=== PATIENT | female | born 1980 | race Caucasian/White ===

== ENCOUNTER 2019-03-17 16:47 | Outpatient (CLI) | payer BC, SELFPAY ==
[2019-03-17 17:41] LABS: HCG Quant, Pregnancy 25039 mIU/mL (1-3)
--- NOTE | 2019-03-17 18:15 | DI.US_ITS ---
EXAM: US OB 1ST TRIMESTER CLINICAL HISTORY: rule out ectopic vs demise, O00.90. TECHNIQUE: Ultrasound performed using standard protocol. COMPARISON: OB ASSESSMENT - WEIGHT/LORI from 06/11/2017 FINDINGS: First-trimester ultrasound was performed. There is a visible yolk sac but no pole or cardiac ac tivity is identified. There may be a small subchorionic hemorrhage. Mean sac size consistent with ges tational age 9 weeks 0 days, the findings in conjunction with the lack of cardiac activity suggest fe luly demise. Early viable intrauterine gestation not excluded. Appropriate follow-up ultrasounds and/o r quantitative beta HCG determinations recommended. IMPRESSION:
--- NOTE | 2019-03-17 19:13 | DI.VRAD_ITS ---
Addendum created by Becca Anthony MD on 03/17/2019 7:39:45 PM EDT THIS REPORT CONTAINS FINDINGS THAT MAY BE CRITICAL TO PATIENT CARE. The findings were verbally communicated via telephone conference with TIFFANY BLAKE at 7:39 PM EDT on 03/17/2019. The findings were acknowledged and understood. Initial report created on 03/17/2019 7:13:43 PM EDT PROCEDURE INFORMATION: Exam: US First Trimester, Transabdominal Exam date and time: 03/17/2019 4:45 PM Clinical history: 38 years old, female; Pain; Other: Rule out ectopic vs demise; Gestational age or lmp: Lmp 01/04/19; TECHNIQUE: Imaging protocol: Real-time transabdominal obstetrical ultrasound of the maternal pelvis and a first trimester , less than 14 weeks 0 days, with image documentation. COMPARISON: US OB 11/06/2017 14:16 FINDINGS: GESTATION: Gestation: There is a yolk sac. There is no definite pole identified. Heart rate: There is no cardiac activity is identified. Placenta: Possible small subchorionic hemorrhage. Amniotic fluid: Amniotic and chorionic fluid are normal for gestational age. BIOMETRY: Estimated gestational age: Intrauterine gestational sac measures 3.7 cm corresponding to 9 weeks 0 days gestational age. MATERNAL: Uterus: Unremarkable. Cervix: Unremarkable. Right adnexa: 2.3 cm right ovarian cyst with peripheral vascularity. Left adnexa: Unremarkable. Intraperitoneal: No intraperitoneal free fluid. IMPRESSION: Intrauterine gestational sac in the sac. No definite pole or no cardiac activity. The findings may represent an early intrauterine verses an early intrauterine demise. Recommend correlating with beta-hCG and followup ultrasound for further evaluation. Dictated and Authenticated by: Becca Anthony MD. Ordering:VANESSA Valladares MD
== END 2019-03-17 17:07 ==
PROVIDERS: PCP Nurse Practitioner Family; Visit Provider Obstetrics & Gynecology
DX: O00.90 Unspecified ectopic pregnancy without intrauterine pregnancy (principal); O20.0 Threatened abortion
CPT/HCPCS: 36415; 86850; 86900; 86901; 76801; 84702

== ENCOUNTER 2019-03-22 12:44 | Day surgery (SDC) | payer BC, SELFPAY ==
[2019-03-22 13:10] VITALS: BP 113/63; PULSE 75; RESP 16; TEMP 36.5; O2SAT 100
--- NOTE | 2019-03-22 13:20 | W.PM.HP.N ---
Date of service: 03/22/19 Time of Service: 13:20 Assessment and Plan Assessment and plan (1) Missed : Status: Acute Assessment and plan: Patient has attempted to do doses of vaginal misoprostol without bleeding or significant cramping. She has opted for a surgical evacuation of uterine contents. I reviewed the risks of the procedure including the risk of damage to the uterus the risk of puncture of the uterus requiring a larger incision and exploratory laparotomy. Cells the risk of bleeding from surrounding vessels the uterus or puncture of the bladder. Lastly the risk of damage to the bowels the event of uterine perforation. Patient is aware of alternatives to D&C and wishes to proceed. She was administered doxycycline 200 mg orally prior to the procedure. (2) Rh negative state in antepartum period: Status: Acute Assessment and plan: The plan is to have her obtained RhoGam immediately post procedure. History of Present Illness History of Present Illness Chief Complaint: Missed at 9 weeks estimated gestational age Narrative: Patient is a 38-year-old G2, P1 female currently 9+ weeks estimated gestational age who was diagnosed with a missed on 03/17/2019. She recently had a dating ultrasound scheduled but there was no evidence of pole on the transvaginal ultrasound. Repeat imaging was performed and diagnostic imaging which confirmed a 9-week missed . Patient was counseled regarding treatment options and originally opted for expectant management. Type and screen showed her to be Rh- with antibody negative at the time of [facility]2019 she was counseled regarding continued expectant management, treatment with intravaginal misoprostol or D&C. She opted for the treatment but intravaginal misoprostol. She took 800 mcg per visit in her vagina that evening repeat dose the evening of the next day produced no significant bleeding or passage of tissue. She is had minimal spotting from her vagina and minimal uterine cramping despite the 2 doses of 800 mcg of misoprostol. Review of Systems Constitutional Constitutional: Reports as per HPI, Denies fever(s) and Reports other (Mild uterine cramping) Cardiovascular Cardiovascular: Reports system reviewed and no additional complaints, except as docu Respiratory Respiratory: Reports system reviewed and no additional complaints, except as docu Gastrointestinal Gastrointestinal: Reports abdominal pain (Mild cramping) Genitourinary Genitourinary: Reports abnormal vaginal bleeding (Small amount of spotting no significant clots or tissue) and Reports pelvic pain (Uterine cramping) Integumentary/Breasts Skin/Breast: Reports system reviewed and no additional complaints, except as docu Psychiatric Psychiatric: Reports as per HPI (Coping well with the SAB in the lack of success with the misoprostol) [facility] Medical History Bruit As infant, underwent screenings, transient. Resolved. Factor 5 Leiden mutation, heterozygous Missed (Acute) 03/20/2019: Estimated gestational age 9 weeks. No pole Surgical History (Updated 03/22/19 @ 13:29 by Nidhi Mendez MD) History of D&C (Acute) 03/22/2019. 9-week missed . [place] teeth extracted (Acute) Family History Mother Age: 72 Breast cancer Father Age: 74 Factor 5 Leiden mutation, heterozygous Sister Age: 39 Factor 5 Leiden mutation, heterozygous Maternal Aunt Factor 5 Leiden mutation, heterozygous paternal Sister Age: 42 No problems noted. Social History (Updated 03/22/19 @ 13:25 by Nidhi Mendez MD) Smoking/Tobacco Use Status: Never Alcohol Intake: former Drug use: Never Substance use type: does not use Household members: spouse, children and other Details: [facility] Number of Children: 1 Education Level: college current occupation: Teacher seventh-grade Do you feel safe at home: Yes Do you feel safe in your relationship?: Yes History History 2 Para 1 Hx # Term Pregnancies 1 Multiple births Hx # Pregnancies Ectopic pregnancies AB induced Hx Number of Living Children 2 AB spontaneous 1 Meds Home Medications and Allergies Home Medications Medication Instructions Recorded Confirmed Type PNV cmb#95-ferrous fumarate-FA 1 ea PO TID 11/06/16 03/22/19 History [Prenavite] misoprostol 100 mcg tablet 100 mcg VAGINAL ONCE #16 tab 03/21/19 03/22/19 Rx ranitidine HCl 150 mg PO DAILY PRN 03/22/19 03/22/19 History Allergies Allergy/AdvReac Type Severity Reaction Status Date / Time codeine AdvReac sobbing Unverified 03/22/19 13:07 depression Exam Const General: no acute distress Nutritional Appearance: average body habitus Orientation: alert, awake and oriented x3 Resp Effort & Inspection: normal respiratory effort Auscultation: clear to auscultation bilaterally Cardio Rate: regular rate Rhythm: regular rhythm General: deferred Skin General skin exam: no rashes or lesions noted Psych Appearance: grossly normal Mental Status: mental status grossly normal Results Last Vital Signs Temp 97.7 F 03/22/19 13:10 Pulse 75 03/22/19 13:10 Resp 16 03/22/19 13:10 BP 113/63 03/22/19 13:10 Pulse Ox 100 03/22/19 13:10
[2019-03-22] MEDS: Doxycycline Hyclate 100 MG CAP 200 MG PO (13:23)
[2019-03-22] MEDS: Lactated Ringers 1,000 ML 125 ML IV ×2 (13:24→14:57)
--- NOTE | 2019-03-22 14:30 | POC_PTH ---
PATIENT: Harper Goddard LOC: [facility] U#:[id number] AGE/SX: 38/F ROOM: RE03/22/[address]: Nidhi Mendez : 1980 BED: DIS: 03/22/2019 SPEC #: [id number] RECD: 03/22/19 17:12 STATUS: PREET REKishore #: [id number] BELINDA: 03/22/19 14:[address]: Nidhi Mendez DEPT: Surgical Specimen RECD BY: Michelle Esposito ENTERED: 03/22/19 17:13 SP TYPE: POC OTHR DR: Halima Long Tissues: 1 - INDUCED Procedures: GROSS AND MICRO LEVEL 3 Comments: [id number]
[2019-03-22] MEDS: Bupivacaine 0.25% Pres-Free 30 ML VIAL (14:46)
[2019-03-22] MEDS: Silver Nitrate Stick 1 EACH (14:49)
[2019-03-22 15:34] VITALS: BP 104/53; PULSE 58; RESP 18; TEMP 36.2; O2SAT 99
--- NOTE | 2019-03-22 15:40 | NUR.NOTE ---
Sharri Youngblood RN verified pt identity with this nurse before administration. Administered into left deltoid.Nursing Note:
--- NOTE | 2019-03-22 15:46 | W.PM.DSUDISC ---
Discharge Plan Disposition Patient Disposition: HOME Condition: Fair Discharge Details Reason For Visit: MISSED AB Attending Provider: Nidhi Mendez Primary Care Provider: Halima Long Home Meds and New Rx's Prescriptions: No Action misoprostol 100 mcg tablet 100 mcg vaginal ONCE Qty: 16 RF: 0 PNV cmb#95-ferrous fumarate-FA [] 1 EACH tablet 1 ea PO TID RF: 0 ranitidine HCl 150 mg Capsule 150 mg PO DAILY PRNRF: 0 Discharge Instructions Additional Instructions: ibuprofen for cramping. You can expect bleeding for a week. You havre an appointment with Dr Mendez 04/07/19 at 3:20 at [facility]. Stand Alone Forms: DSU Post Gynecology Surgery, DSU Post Suction D+C, Kevin Do (DSU) Activity:: Activity as Tolerated Diet:: As Tolerated Discharge Orders Discharge Orders: Discharge Order (Routine); Ordered 03/22/19 Ordered By: Nidhi Mendez DS: Diagnosis Discharge Diagnosis (1) Missed : Status: Acute (2) Rh negative state in antepartum period: Status: Acute (3) History of D&C: Status: Acute
[2019-03-22 16:18] VITALS: BP 108/52; PULSE 66; RESP 18; TEMP 36.6; O2SAT 100
--- NOTE | 2019-04-03 15:42 | W.PM.OP ---
Operative Note Operative Note DATE OF PROCEDURE: 04/03/19 PRE-OP DIAGNOSIS: Missed approximately 9 weeks estimated gestational age POST-OP DIAGNOSIS: same PROCEDURE: Cervical dilatation and suction evacuation of uterine contents SURGEON: Nidhi Mendez ANESTHESIA: MAC ESTIMATED BLOOD LOSS: 10 PATHOLOGY: other (Products of conception to pathology) COMPLICATIONS: None Patient was transported to: PACU Patient's condition: stable Indications: 38-year-old G2, P1 female currently 9+ weeks EGA diagnosed with a missed on 03/17/2019. Patient was initially managed expectantly. On 03/20/2019 she opted for the treatment with intravaginal misoprostol. She took a dose of 800 mcg vaginally 12 hours apart without any uterine bleeding or cramping. She requested a D&C. Findings: Uterus enlarged sounded to 10 cm. Moderate amount of products of conception returned. Procedure Description: Patient was placed in the dorsal supine position and and monitored anesthesia care was performed. She was then placed in the dorsal lithotomy position in yellowfin stirrups prepped and draped in the usual sterile fashion she voided prior to arriving in the OR. Oral doxycycline had been administered on arrival to same-day surgery. [place] speculum was placed into the vagina and the anterior lip of the cervix was infiltrated with quarter percent Marcaine without epinephrine the anterior lip of the cervix was then grasped with a single-tooth tenaculum. Paracervical block was performed with quarter percent Marcaine injected at the 4 and 8:00 cervical interface respectively. Uterus was then sounded and sequentially dilated to a maximum of 19 Up. A 9 mm suction cannula was then inserted into the uterine cavity attached to 60 mmHg suction in all 4 quadrants of the uterine cavity was sequentially suction curetted. A banjo curette was then used to perform a manual curetting no further tissue was obtained. Final pass of the suction curette was performed with no tissue returned. Instruments were removed from the patient's vagina the tenaculum site was noted to be hemostatic and the uterus firm with minimal cervical bleeding. All sponge lap and needle counts were correct x2 patient was transferred to recovery area in stable condition
== END 2019-03-22 16:20 | disposition home or self-care (01) ==
PROVIDERS: PCP Nurse Practitioner Family; Visit Provider Obstetrics & Gynecology Gynecology
PROC: (CPT 59841; principal; 2019-03-22 14:00)
DX: O02.1 Missed abortion (principal); Z29.13 Encounter for prophylactic Rho(D) immune globulin
CPT/HCPCS: 59820; 86850; 90384; 99221; 88304; 99211; J1100; J1200; J1885; J2250; J2405; J3010

== ENCOUNTER 2019-07-19 17:45 | Outpatient (REF) | payer BC, SELFPAY ==
--- NOTE | 2019-07-19 17:45 | PAPFT_PTH ---
PATIENT: Harper Goddard LOC: [facility]#:[id number] AGE/SX: 38/F ROOM: RE07/19/[address]: Zo Montes : 1980 BED: DIS: 07/19/2019 SPEC #: [id number] RECD: 07/20/19 11:40 STATUS: PREET REQ #: [id number] BELINDA: 07/19/19 17:[address]: Zo Montes DEPT: [facility] Cytology RECD BY: Michelle Esposito ENTERED: 07/20/19 11:40 SP TYPE: PAPFT OTHR DR: Halima Long Tissues: 1 - CX/ENDOCX FOR PAP SMEARS Procedures: PAP THIN PREP/UVM Screening HPV DNA PROBE Comments: [id number] (CHLAMYDIA/GC)
[2019-07-19 22:44] LABS: Anion Gap 8.3 mmol/L (3-11); BUN 13 mg/dL (7-18); CO2 27.7 mmol/L (21.0-32.0); CREATININE 0.83 mg/dL (0.55-1.02); Calcium 8.9 mg/dL (8.5-10.1); Chloride 105 mmol/L (98-107); Glucose 113 mg/dL (74-106); Potassium 3.9 mmol/L (3.5-5.1); Sodium 141 mmol/L (136-145); TSH (W/Ref FT4) 2.21 uIU/mL (0.36-3.74)
[2019-07-21 14:46] LABS: Chlamydia Result Negative (Negative); GC Result Negative (Negative)
== END 2019-07-19 18:05 ==
LOC: NCHCN 17:45
PROVIDERS: PCP Nurse Practitioner Family; Visit Provider Nurse Practitioner Family
DX: Z00.00 Encounter for general adult medical examination without abnormal findings (principal); Z13.29 Encounter for screening for other suspected endocrine disorder; Z13.228 Encounter for screening for other metabolic disorders; Z11.3 Encounter for screening for infections with a predominantly sexual mode of transmission; Z12.4 Encounter for screening for malignant neoplasm of cervix; Z01.419 Encounter for gynecological examination (general) (routine) without abnormal findings
CPT/HCPCS: 80048; 87491; 87591; 88142; 84443; 87624

== ENCOUNTER 2020-02-14 04:57 | Outpatient (CLI) | payer BC, SELFPAY ==
[2020-02-14 20:24] LABS: *AMPHETAMINES SCREEN URINE Negative (Negative); *BARBITURATES SCREEN URINE Negative (Negative); *BENZODIAZEPINES SCREEN URINE Negative (Negative); Cannabinoids THC Negative (Negative); Cocaine Screen,Urine Negative (Negative); METHADONE URINE SCREEN Negative (Negative); OPIATES URINE SCREEN Negative (Negative)
[2020-02-14 20:40] LABS: Tricyclic Antidepressants Negative (Negative)
[2020-02-21 11:08] LABS: Buprenorphine Negative; Norbuprenorphine Negative
== END 2020-02-14 05:17 ==
PROVIDERS: PCP Nurse Practitioner Family; Visit Provider Advanced Practice Midwife
DX: Z34.90 Encounter for supervision of normal pregnancy, unspecified, unspecified trimester (principal)
CPT/HCPCS: 80307; 87086

== ENCOUNTER 2020-02-28 03:11 | Outpatient (CLI) | payer BC, SELFPAY ==
[2020-02-28 09:58] LABS: Kit/Specimen SENT
[2020-02-28 10:16] LABS: Abs Immature Grans 0.02 10^3/uL (0.0-0.06); Absolute Basophil Count 0.01 10^3/uL (0.0-0.2); Absolute Eosinophil Count 0.04 10^3/uL (0.0-0.7); Absolute Monocyte Count 0.23 10^3/uL (0.1-0.8); Absolute Neutrophil Count 3.92 10^3/uL (1.2-6.7); Basophils % 0.2; Eosinophils % 0.8; HCT 38.3 % (36.0-46.0); HGB 13.2 g/dL (11.2-15.7); Immature Grans % 0.4; Lymphocytes % 14.2; MCHC 34.5 % (32.0-36.0); MCV 89.9 fL (80-95); MPV 10.2 fL (8.0-11.0); Monocytes % 4.7; Neutrophils % 79.7; Nucleated RBC 0 %; Platelet Count 151 10^3/uL (130-400); RBC 4.26 10^6/uL (3.93-5.22); RDW 12.9 % (11.7-14.6); RDW-SD 42.1 fL; WBC 4.92 10^3/uL (4.4-10.8)
[2020-02-28 10:24] LABS: Glucose,1 Hr (Glucola) 94 mg/dL (80-140)
[2020-02-29 09:11] LABS: Hepatitis B Surface Ag Negative (Negative)
[2020-02-29 09:50] LABS: Hepatitis C Ab w Rflx HCV PCR Negative (Negative)
[2020-02-29 10:12] LABS: HIV-1/2 Ag & Ab Screen Negative (Negative)
[2020-02-29 10:44] LABS: Varicella IgG Antibody Positive (See Note)
[2020-02-29 10:47] LABS: Rubella IgG Ab (UVM) Positive (See Note)
[2020-02-29 13:47] LABS: Syphilis Total Ab w/Reflex Nonreactive (Nonreactive)
[2020-03-03 11:04] LABS: Specimen WB Whole Blood
[2020-03-06 02:56] LABS: Result Summary NEGATIVE; Specimen WB Whole Blood
== END 2020-02-28 03:31 ==
PROVIDERS: PCP Nurse Practitioner Family; Visit Provider Advanced Practice Midwife
DX: O09.521 Supervision of elderly multigravida, first trimester (principal); Z11.59 Encounter for screening for other viral diseases; Z11.4 Encounter for screening for human immunodeficiency virus [HIV]; Z01.84 Encounter for antibody response examination; Z36.89 Encounter for other specified antenatal screening
CPT/HCPCS: 36415; 81329; 82950; 86787; 86803; 86850; 86900; 86901; 87340; 87389; 81220; 84443; 85025; 86762; 86780

== ENCOUNTER 2020-04-24 04:40 | Outpatient (CLI) | payer BC, SELFPAY ==
[2020-04-26 12:40] LABS: AFP 38.7 ng/mL; Cigarette smoking status non-Smoker; GA used in risk estimate Dates estimate; IVF Pregnancy No; Initial or repeat testing Initial testing; Insulin dependent diabetes No; Maternal Weight 255 lbs; Number of Fetuses 1; Physician Phone Number 802-748-7300; Prev Pregnancy w/NTD No; RECOMMENDED FOLLOW UP None.; Results Summary Normal risk
== END 2020-04-24 05:00 ==
PROVIDERS: PCP Nurse Practitioner Family; Visit Provider Advanced Practice Midwife
DX: Z36.89 Encounter for other specified antenatal screening (principal); Z3A.20 20 weeks gestation of pregnancy
CPT/HCPCS: 36415; 82105

== ENCOUNTER 2020-06-20 02:39 | Outpatient (CLI) | payer BC, SELFPAY ==
[2020-06-20 10:13] LABS: Glucose,1 Hr (Glucola) 106 mg/dL (80-140)
[2020-06-20 10:21] LABS: HCT 37.1 % (36.0-46.0); HGB 12.5 g/dL (11.2-15.7); MCH 30.9 pg (27.0-33.0); MCHC 33.7 % (32.0-36.0); MCV 91.8 fL (80-95); MPV 10.2 fL (8.0-11.0); Platelet Count 138 10^3/uL (130-400); RBC 4.04 10^6/uL (3.93-5.22); RDW-SD 47.1 fL; WBC 6.02 10^3/uL (4.4-10.8)
== END 2020-06-20 02:59 ==
PROVIDERS: PCP Nurse Practitioner Family; Visit Provider Advanced Practice Midwife
DX: Z34.93 Encounter for supervision of normal pregnancy, unspecified, third trimester (principal); Z36.89 Encounter for other specified antenatal screening; Z3A.28 28 weeks gestation of pregnancy
CPT/HCPCS: 36415; 82950; 85027; 86850; 90384

== ENCOUNTER 2020-07-22 01:08 | Outpatient (CLI) | payer BC, SELFPAY ==
--- NOTE | 2020-07-22 09:00 | DI.US_ITS ---
EXAM: US OB LORI WEIGHT CLINICAL HISTORY: 2 vessel cord,Z34.90. TECHNIQUE: Transabdominal obstetrical ultrasound performed. COMPARISON: No previous for comparison. FINDINGS: Transabdominal obstetrical ultrasound performed. FINDINGS: Number of fetuses: One. position: Cephalic. Placental location: Anterior. No evidence of previa. BIOMETRIC DATA: BPD: 87 mm = 35 weeks HC: 317 mm = 35 weeks 4 days AC: 325 mm = 36 weeks 3 days FL: 7 mm = 36 weeks EFW: 2829 grms Composite Age: 35 weeks 5 days EDC: 08/21/2020 Heart Rate: 140BPM Amniotic fluid index: 19.4 cm. Visually, amount of fluid is within normal limits. IMPRESSION: 1. Single live intrauterine gestation as above. Estimated gestational age is 35 weeks 5 days. 2. Estimated weight is 2829gms. 3. Amniotic fluid index is 19.4 cm. Visually within normal limits. DATA REPOSITORY:
== END 2020-07-22 01:09 | disposition home or self-care (01) ==
PROVIDERS: PCP Nurse Practitioner Family; Visit Provider Advanced Practice Midwife
DX: Z34.93 Encounter for supervision of normal pregnancy, unspecified, third trimester (principal)
CPT/HCPCS: 76816

== ENCOUNTER 2020-08-06 02:26 | Outpatient (CLI) | payer BC, SELFPAY ==
[2020-08-06 09:59] LABS: HCT 37.2 % (36.0-46.0); HGB 12.8 g/dL (11.2-15.7); MCH 31.1 pg (27.0-33.0); MCHC 34.4 % (32.0-36.0); MCV 90.3 fL (80-95); MPV 9.9 fL (8.0-11.0); Platelet Count 140 10^3/uL (130-400); RBC 4.12 10^6/uL (3.93-5.22); RDW 14.1 % (11.7-14.6); RDW-SD 46.5 fL
[2020-08-06 10:05] LABS: Glucose,1 Hr (Glucola) 123 mg/dL (80-140)
== END 2020-08-06 02:27 | disposition home or self-care (01) ==
LOC: LBO 02:26
PROVIDERS: Advanced Practice Midwife; PCP Nurse Practitioner Family; Visit Provider Advanced Practice Midwife
DX: Z34.93 Encounter for supervision of normal pregnancy, unspecified, third trimester (principal)
CPT/HCPCS: 36415; 82950; 85027

== ENCOUNTER 2020-08-16 14:02 | Outpatient (REF) | payer BC, SELFPAY ==
[2020-08-16 14:25] LABS: *AMPHETAMINES SCREEN URINE Negative (Negative); *BARBITURATES SCREEN URINE Negative (Negative); *BENZODIAZEPINES SCREEN URINE Negative (Negative); Cannabinoids THC Negative (Negative); Cocaine Screen,Urine Negative (Negative); METHADONE URINE SCREEN Negative (Negative); OPIATES URINE SCREEN Negative (Negative)
[2020-08-16 14:46] LABS: Tricyclic Antidepressants Negative (Negative)
[2020-08-22 06:46] LABS: Buprenorphine Negative ng/mL (Cutoff: 5.0); Norbuprenorphine Negative ng/mL (Cutoff: 2.5)
== END 2020-08-16 14:03 | disposition home or self-care (01) ==
LOC: LBN 14:02
PROVIDERS: PCP Nurse Practitioner Family; Visit Provider Advanced Practice Midwife
DX: Z34.93 Encounter for supervision of normal pregnancy, unspecified, third trimester (principal); Z36.85 Encounter for antenatal screening for Streptococcus B; Z3A.36 36 weeks gestation of pregnancy
CPT/HCPCS: 80307; 87081

== ENCOUNTER 2020-08-19 01:27 | Outpatient (CLI) | payer BC, SELFPAY ==
--- NOTE | 2020-08-19 07:00 | DI.US_ITS ---
EXAM: US OB LORI WEIGHT CLINICAL HISTORY: LARGE FOR GESTATIONAL AGE,Z34.90. TECHNIQUE: Transabdominal obstetrical ultrasound performed. COMPARISON: US US OB LORI WEIGHT from 07/22/2020 US US OB LORI WEIGHT from 07/22/2020 FINDINGS:: Number of fetuses: One. position: Vertex. Placental location: Anterior. No evidence of previa. BIOMETRIC DATA: BPD: 94 mm = 38+ 1 weeks HC: 355 mm = 41+4 weeks AC: 357mm = 39+ 4 weeks FL: 78 mm = 39+ 6 weeks EFW: 3860 Gms = 99% Composite Age: 39+ 6 weeks EDC: 20 August 2020 Predicted gestational age 36+ 5 weeks Heart Rate: 143BPM Amniotic fluid index: 19.9 cm. Amount of fluid is at the upper normal limit. This is not significan tly changed. A 2 vessel umbilical cord is noted. IMPRESSION: size is again noted to be measuring 2 weeks greater than predicted. Appropriate interval growth. Stable borderline polyhydramnios. A two vessel cord is noted. DATA REPOSITORY:
== END 2020-08-19 01:47 ==
PROVIDERS: PCP Nurse Practitioner Family; Visit Provider Advanced Practice Midwife
DX: Z34.93 Encounter for supervision of normal pregnancy, unspecified, third trimester (principal)
CPT/HCPCS: 76816

== ENCOUNTER 2020-09-13 04:11 | Outpatient (CLI) | payer BC, SELFPAY ==
--- NOTE | 2020-09-13 07:15 | DI.US_ITS ---
EXAM: US OB LORI WEIGHT CLINICAL HISTORY: size greater than dates,o36.63X0 TECHNIQUE: Ultrasound performed using standard protocol. COMPARISON: US US OB LORI WEIGHT from 08/19/2020 FINDINGS: Ob ultrasound was performed utilizing limited 3rd trimester protocol. Placenta is anterior with no p lacenta previa. There is a single fetus in cephalic presentation. There is visually a normal to sli ghtly increased quantity of amniotic fluid and the LORI is 20. biometry is consistent with term gestation. Estimated weight is 4435 grams which is at t he 95th percentile for predicted gestational age. heart rate is 147 BPM IMPRESSION: DATA REPOSITORY:
== END 2020-09-13 04:31 ==
PROVIDERS: PCP Nurse Practitioner Family; Visit Provider Advanced Practice Midwife
DX: O36.63X0 Maternal care for excessive fetal growth, third trimester, not applicable or unspecified (principal)
CPT/HCPCS: 76816

== ENCOUNTER 2020-09-13 14:40 | Inpatient (IN) | payer BC, SELFPAY ==
--- NOTE | 2020-09-13 17:05 | HPE_ITS ---
Date of service: 09/13/20 Time of Service: 17:06 Assessment and Plan Assessment and plan (1) Encounter for induction of labor: Status: Acute Assessment and plan: A: 39 yo , IOL via cervical ripening for LGA postdates Increased risk for shoulder dystocia and PPH, discussed with staff Category 1 tracing, holbrook score of 5 Nml glucose screening x2 this Heterozygous Factor 5 Leiden, no need for anti-coag during per [facility], P: Admit to BC, draw CBC and T&S, COVID swab for inhouse processing Misoprostel IOL protocol Dr. Mendez consulting, inhouse for delivery (2) Post-term , 40-42 weeks of gestation: Status: Acute OB-HPI Labor/Delivery History of Present Illness Reason for Visit: POST DATES,MACROSOMIA Chief Complaint: Scheduled Induction of Labor Indication for Induction: Ma crosomia and Post Date. LEIGHTON Calculator Estimated Delivery Date Method Current WG Current Estimate 09/11/20 LMP (Certain) 40w 2d Other Estimates 09/11/20 Ultrasound #1 40w 2d History of Present Expected Delivery Route/Plan - CNM FOB/ - Tata Lewis (2nd child w/pt, has another daughter) BB yes to circ Prefers no document management consultant intervention - anxiety producing in the past. GBS negative Specific Issues/Plan 1. BMI 34, early glucola 94 2. AMA: desires [place] and level 2 sono w/MFM consult @ [facility] 2a. [place] result is low prob x3, male fetus 2b. [facility] US shows 2-vessel cord - growth US at 32 weeks and 36 weeks 3. Desires CF and SMA screening, drawn 02/27; desires single marker AFP, will draw @ 16 wks 3a. SMA and CF carrier screen negative 3b. AFP neg 4. Heterozygous Factor 5 Leiden, genetic w/up & counseling w/previous 4a. [facility] recommends Lovenox only if pt has a C/S delivery or long period of immobility 5. Previous macrosomia w/mild shoulder dystocia 6. Low dose ASA for elevated BMI and AMA 7. Rh neg; RhoGam @ 28 wks: done 06/20/20 8. [facility] sono showed 2 vessel cord, 32 wk and 36 wk interval growth scans recommended, anterior placenta 8a. 32 wk scan: 07/22/20 LORI normal EFW >99% (off charts per radiology) 8b. 36 wk scan: 08/19/20 - EFW 3860 gms in 99th percentile, LORI 19.9 9. Depression beginning at 22 weeks or so. Will monitor, consider SSRI by 32-34 wks if continues. 9a. Decided against medications. Taking Vitamin D/Magnesium/fish oil, feels improvement Review of Systems All systems reviewed & are unremarkable except as noted in HPI and below Constitutional Constitutional: Reports system reviewed and no additional complaints, except as documented Cardiovascular Cardiovascular: Reports system reviewed and no additional complaints, except as documented Respiratory Respiratory: Reports as per HPI Gastrointestinal Gastrointestinal: Reports system reviewed and no additional complaints, except as documented Genitourinary Genitourinary: Reports system reviewed and no additional complaints, except as documented Musculoskeletal Musculoskeletal: Reports system reviewed and no additional complaints, except as documented Integumentary/Breasts Skin/Breast: Reports system reviewed and no additional complaints, except as documented Neurologic Neurologic: Reports system reviewed and no additional complaints, except as documented Psychiatric Psychiatric: Reports system reviewed and no additional complaints, except as documented Endocrine Endocrine: Reports system reviewed and no additional complaints, except as documented [facility] Medical History (Updated 09/13/20 @ 17:12 by Barby Valdivia) 16 weeks gestation of Bruit As , underwent screenings, transient. Resolved. Elderly multigravida in second trimester Factor 5 Leiden mutation, heterozygous Missed 03/20/2019: Estimated gestational age 9 weeks. No pole Surgical History (Updated 03/22/19 @ 13:29 by Nidhi Mendez MD) History of D&C 03/22/2019. 9-week missed . [place] teeth extracted Family History Mother Age: 73 Breast cancer Father Age: 76 Factor 5 Leiden mutation, heterozygous Sister Age: 41 Factor 5 Leiden mutation, heterozygous Maternal Aunt Factor 5 Leiden mutation, heterozygous paternal Sister Age: 43 No problems noted. Social History (Updated 03/22/19 @ 13:25 by Nidhi Mendez MD) Smoking/Tobacco Use Status: Never Smoking risk assessment performed?: Yes Alcohol Intake: former Drug use: Never Substance use type: does not use Household members: spouse, children and other Details: [place] Number of Children: 1 Education Level: college current occupation: Teacher seventh-grade Do you feel safe at home: Yes Do you feel safe in your relationship?: Yes History History 3 Para 1 Hx # Term Pregnancies 1 Multiple births 0 Hx # Pregnancies 0 Ectopic pregnancies 0 AB induced 0 Hx Number of Living Children 1 AB spontaneous 1 Past Pregnancies Del. Date GA/Weeks # Outcome Route Wgt Sex Labor Lgth Anesthes ia Location Prov Complic 06/15/17 41 No Successful vaginal 9 lb Female 8-9 hrs N [facility] with Dr. Mendez Delivery Date: 06/15/17 IOL for postdates, rodas bulb and pitocin, GBS antibiotics, used nitrous only for pain. Mild shoulder dystocia. Barby Valdivia Home Medications and Allergies Allergies Allergy/AdvReac Type Severity Reaction Status Date / Time codeine AdvReac sobbing Unverified 09/12/20 15:26 depression Home Medications Medication Instructions Recorded Confirmed Type vit no.95-ferrous 1 tab PO DAILY 01/31/20 05/22/20 History fumarate 28 mg-folic acid 800 mcg tablet aspirin 81 mg tablet,delayed 121.5 mg PO DAILY #90 tab 02/14/20 05/22/20 Rx release cholecalciferol (vitamin D3) 10 10 mcg PO DAILY 07/05/20 History mcg (400 unit) capsule fish oil 2 tab PO DAILY 07/05/20 History lactobacillus combination no.8 3 3,000 mmu cells PO DAILY 07/05/20 History billion cell capsule magnesium carb,citrate,oxide mg PO 08/23/20 History Exam Physical Exam Vital Signs Reviewed: Yes Constitutional Constitutional: no acute distress and obese Detailed Labor and Delivery Exam Dilation: 2 Effacement (%): 60 station: -4 Position: ROP Cervix position: posterior Consistency: soft HOLBROOK Score(Cervical Ripeness Score): 5 Amniotic Membrane Status: Intact Contraction Frequency(min): none Fetus A Heart Rate Baseline: 130 Monitor Accelerations: 15 X 15 Monitor Decelerations: None Presentation: Cephalic Categories: Category I Est. Weight: 9 lb 14.733 oz Est. Weight: 4500 gms Assessment Note: Ultrasound for EFW/LORI done today: EFW in the 95th pe rcentile, LORI 20.0 HEENT Exam HEENT Exam: Normal Neck Exam Neck Exam: Normal Chest/Brest/Axilla Exam Chest Exam: Normal Breast Exam Breast Exam: Normal Respiratory Exam Respiratory Exam: Normal Cardiovascular Exam Cardiovascular Exam: Normal Abdominal Exam Abdominal Exam: Normal (Gravid) Rectal Exam Rectal Exam: Not Done Exam Exam: Normal Extremities Exam Extremities Exam: Normal Back/Spine/Pelvis Exam Back Exam: Normal Pelvis Adequate: Yes (proven to 4100 gms) Skin Exam Skin Exam: Normal Neurological Exam Neurological Exam: Normal Psychiatric Exam Psychiatric Exam: Normal Results Results Group Beta Strep: Negative Blood Type: A- Rubella Status: Immune Varicella Immunity: Immune Risk Assessment Risk for Shoulder Dystocia Historical/Initial OB: POSITIVE FOR: Pre- BMI>30 and Previous Shoulder D ystocia; NEGATIVE FOR: Pelvic Abnormality or Previous Macrosomia 40 Weeks: POSTIVE FOR: EFW> 4500 gms and Post Dates; NEGATIVE FOR: Maternal Weight Gain >40lb Increased Risk?: Yes Counseling: reviewed shoulder dystocia risks, maneuvers, that likely should not be in tub but labor in tub is not prohibited.KETURAH Delivery Plan @ 36wks: expect NVD, repeat US for growth at 37-38 weeks Delivery Plan @ 40 wks: IOL @ 40+3 Risk for Pre-Eclampsia Daily Dose ASA Indicated: Yes Date Initiated/Initials: will start 121 mg daily at 12 wks, jk Yes, if one or more: NEGATIVE FOR: Hx Pre-E/Gest HTN, Chronic HTN, Multiple Gestation, Pre-gestational DM, Renal Disease, Systemic Lupus or APA Syndrome Yes, if 2 or more: POSITIVE FOR: Age>= 35 yrs and BMI>30; NEGATIVE FOR: Nulliparity, >10yr btwn pregnancies, ethinicty, Mother/Sister w/ Pre-E or Previous IUGR Risk for Post- Hemorrhage Initial: NEGATIVE FOR: Multiple Gestation, Previous PPH, Known Clotting Deficiency, Grand Multiparity or Anticoagulation At Risk?: Yes Interventions: LGA baby Counseled re: Active Management: Yes Date/Initials: 08/16/20 discussed PPH and management, active management 3rd stage disc.KETURAH Risks Reviewed Risks Reviewed Upon Admission: Yes
[2020-09-13] MEDS: miSOPROStol 50 MCG TAB PO ×2 (17:11→21:08)
[2020-09-13 17:13] VITALS: BP 118/72; PULSE 72; RESP 16; TEMP 36.8
[2020-09-13 17:17] LABS: Source Nasal/Nares
[2020-09-13 17:23] LABS: HCT 37.4 % (36.0-46.0); HGB 12.8 g/dL (11.2-15.7); MCHC 34.2 % (32.0-36.0); MCV 90.6 fL (80-95); MPV 10.5 fL (8.0-11.0); Platelet Count 148 10^3/uL (130-400); RBC 4.13 10^6/uL (3.93-5.22); RDW 14.1 % (11.7-14.6); RDW-SD 46.3 fL
[2020-09-13 18:23] LABS: COVID-19 PCR Negative (Negative)
[2020-09-13 20:36] VITALS: BP 112/66; PULSE 77; RESP 18; TEMP 36.6; O2SAT 97
[2020-09-13 22:32] VITALS: BP 116/74; PULSE 74
[2020-09-13 22:33] VITALS: BP 116/74; PULSE 75; RESP 16; TEMP 36.7; O2SAT 97
[2020-09-14] VITALS (27 sets, daily range): BP systolic 108–144; BP diastolic 57–78; PULSE 61–90; RESP 16–18; TEMP 36.5–37.3; O2SAT 98
[2020-09-14] MEDS: miSOPROStol 50 MCG TAB PO (06:28)
--- NOTE | 2020-09-14 06:36 | W.PM.OBNL1 ---
Date of service: 09/14/20 Time of Service: 06:36 Informed Consent Informed Consent: Induction of Labor (IOL via cervical ripening reviewed with pt upon admission yesterday, indications for and risks of IOL and maneuvers for possible shoulder dystocia discussed with pt. Risks to baby and self should shoulder dystocia occur reviewed, pt consents to IOL and desires vaginal delivery.) and Risk,Benefits,Alternatives Discussed Contractions Monitor Mode: External Contraction Frequency(min): irregular, q 3-7 minutes Contraction Duration(sec): 50-70 seconds Intensity: Mild Fetus A Monitor: External (US) Heart Rate Baseline: 130 Presentation: Cephalic Variability: Moderate (6-25 BPM) Categories: Category I Accelerations: 15 X 15 Decelerations: Early Amniotic Membrane Status: Intact Assessment and Plan Assessment and plan (1) Encounter for induction of labor: Status: Acute Assessment and plan: A: IOL in progress, latent phase labor. category 1 tracing Multip, prev delivery of 4100 gm baby: mild SD quickly resolved w/no morbidity GBS negative, EFW 4500 gm COVID negative P: Continue misoprostel protocol w/continued pt informed choice Comfort measures as pt requests Anticipate with SD prep's in place Dr. Mendez consulting (2) Post-term , 40-42 weeks of gestation: Status: Acute Objective Temp Pulse Resp BP Pulse Ox 98.0 F 75 16 109/69 98 09/14/20 04:32 09/14/20 04:33 09/14/20 04:32 09/14/20 04:33 09/14/20 04:32 Laboratory Results WBC 7.50 10^3/uL (4.4-10.8) 09/13/20 17:05 RBC 4.13 10^6/uL (3.93-5.22) 09/13/20 17:05 Hgb 12.8 g/dL (11.2-15.7) 09/13/20 17:05 Hct 37.4 % (36.0-46.0) 09/13/20 17:05 MCV 90.6 fL (80-95) 09/13/20 17:05 MCH 31.0 pg (27.0-33.0) 09/13/20 17:05 MCHC 34.2 % (32.0-36.0) 09/13/20 17:05 RDW 14.1 % (11.7-14.6) 09/13/20 17:05 Plt Count 148 10^3/uL (130-400) 09/13/20 17:05 MPV 10.5 fL (8.0-11.0) 09/13/20 17:05 COVID-19 Source Nasal/nares 09/13/20 17:09 SARS-CoV-2 (PCR) Negative (Negative) 09/13/20 17:09 Patient ABO/Rh A Negative 09/13/20 17:05 Antibody Screen Negative 09/13/20 17:05 Vital Signs Reviewed: Yes Objective Narrative Objective Narrative: Pt received 2 doses of 50 mcg misoprostel PO yesterday afternoon/evening Was able to sleep fairly well without medication but awoke to somewhat stonger contrx early this morning Category 1 tracing, normotensive, afebrile, CBC nml, COVID neg, Rh neg (received RhoGam @ 28 wks) Coping well with discomforts, present for support HD #2 Subjective Interval history since last seen: Slept until 0400, has been restless since then, contractions seem stronger, 5/10 on pain scale and feeling like very strong menstrual cramps which felt better after walking around. Procedure Procedures: Cervical Ripening Cervical Ripening: Misoprostol
[2020-09-14] MEDS: Normal Saline Flush 10 ML SYR IVP ×2 (10:03→17:42)
[2020-09-14] MEDS: Normal Saline Flush 10 ML SYR (11:03)
--- NOTE | 2020-09-14 11:39 | PGE_ITS ---
Date of service: 09/14/20 Time of Service: 11:39 Informed Consent Informed Consent: Other (Consent discussion for AROM, continued plan for vaginal delivery) Pelvic Exam Dilation: 4 Effacement (%): 90 station: -3 Position: ROT Cervix Position: mid Consistency: soft Vaginal Exam Presentation: Cephalic Contractions Contraction Frequency(min): every 4-6 minutes Intensity: Mild/Moderate Fetus A Monitor: External (US) Heart Rate Baseline: 135 Presentation: Cephalic Variability: Moderate (6-25 BPM) Categories: Category I Accelerations: 15 X 15 Decelerations: None Amniotic Membrane Status: Ruptured Rupture Method: Artifical Amniotic Fluid: Clear Date of Membrane Rupture: 09/14/20 Time of Membrane Rupture: 11:35 Assessment and Plan Assessment and plan (1) Two vessel umbilical cord in faye , antepartum: Status: Acute (2) Post-term , 40-42 weeks of gestation: Status: Acute (3) Encounter for induction of labor: Status: Acute Assessment and plan: A: Multip, IOL via cervical ripening, latent phase Category 1 tracing P: Onset of active labor after AROM Anticipate w/SD prep in place Dr. Mendez updated on progress Objective Vital Signs Reviewed: Yes Objective Narrative Objective Narrative: Afebrile, normotensive Bedside sono done to locate back which is on pt's right side IV site infiltrated in left forearm and has been restarted in right arm Pt ate breakfast, showered, is coping well with contractions Amniotomy introduced as method to increase contraction intensity and bring on a ctive labor, pt consents AROM performed without difficulty, mod/lg amt clear and blood tinged fluid Category 1 tracing during and after procedure Subjective Interval history since last seen: Has ambulated, showered, tolerating PO intake well, contractions feel more consistent Results Hemoglobin/Hematocrit: Hgb 12.8 g/dL (11.2-15.7) 09/13/20 17:05 Hct 37.4 % (36.0-46.0) 09/13/20 17:05
--- NOTE | 2020-09-14 14:41 | W.PM.OBNL1 ---
Date of service: 09/14/20 Time of Service: 14:41 Pelvic Exam Dilation: 5.5 Effacement (%): 90 station: -2 Position: ROP Cervix Position: mid Consistency: soft Vaginal Exam Presentation: Cephalic Contractions Monitor Mode: External Contraction Frequency(min): irregular, q 5-7 minutes Intensity: Moderate Fetus A Monitor: External (US) Heart Rate Baseline: 135 Variability: Moderate (6-25 BPM) Categories: Category I Accelerations: 15 X 15 Decelerations: Early Amniotic Membrane Status: Ruptured Assessment and Plan Assessment and plan (1) Encounter for induction of labor: Status: Acute Assessment and plan: A: Multip, active labor after cervical ripening and AROM Category 1 tracing P: Comfort measures as requested Monitor for labor progression Consider pitocin augmentation if indicated Dr. Mendez updated on pt status Objective Vital Signs Reviewed: Yes Objective Narrative Objective Narrative: AROM x3 hrs, contraction intensity has increased Pt coping well with discomforts, ambulating, resting in bed, now requests hydrotherapy VSS Category 1 tracing with earlies noted Cxv exam progressed to 5-6/90%, vtx -2 ROP with ant font palpable at 1 or 2 o'clock Contractions per toco remain irregular Pt entered tub @ 1445, water temp 100F Subjective Interval history since last seen: Breathing through contractions, increasing pelvic pressure and hip pain. desires to soak in tub.
--- NOTE | 2020-09-14 16:55 | W.PM.OBNL1 ---
Date of service: 09/14/20 Time of Service: 16:55 Informed Consent Informed Consent: Other (Consent discussion for AROM, continued plan for vaginal delivery) Pelvic Exam Dilation: 8 Effacement (%): 100 station: -2 Position: ROT Cervix Position: anterior Consistency: soft Contractions Monitor Mode: Palpation Contraction Frequency(min): every 2-4 minutes Intensity: Strong Fetus A Monitor: Doppler Heart Rate Baseline: 125 Presentation: Vertex FHR Rhythm: Regular Accelerations: Present Decelerations: None Amniotic Membrane Status: Ruptured Assessment and Plan Assessment and plan (1) Encounter for induction of labor: Status: Acute Assessment and plan: A: Active labor, approaching transition IV access verified P: Anticipate Will hold 2nd stage huddle when complete Dr. Mendez aware, planning to attend delivery w/CNM Nsng supervisor agency appointments on BC unit Objective Vital Signs Reviewed: Yes Objective Narrative Objective Narrative: Intermittent auscultation while in tub and while on mat Active labor progressing well Subjective Interval history since last seen: Pt reports increasing rectal pressure, nausea, contractions are intensifying. Got out of the tub, on H&K on mat using CUB
[2020-09-14] MEDS: Lactated Ringers 1,000 ML 125 ML IV (17:43)
[2020-09-14] MEDS: Oxytocin/Normal Saline 30 UNIT/500 ML BAG 95 UNITS IV (17:50)
[2020-09-14] MEDS: Oxytocin 10 UNITS/ML VIAL IM (17:55)
[2020-09-14] MEDS: Lidocaine 1% Multi-Dose 20 ML VIAL IJ (18:00)
--- NOTE | 2020-09-14 18:30 | W.OBDELIVERY ---
Date of service: 09/14/20 Time of Service: 18:30 OB Labor/ Delivery Information Baby A Delivery Delivery Method: Spontaneaous Presentation: Vertex Vertex Position: Right Occipital Anterior Breech Position: N/A Cord Description-Baby A: 2 Vessels Cord Description Comment: cord wrapped loosely around infant's chest x1, 2 VC confirmed, central cord insertion, one false knot along cord noted 4-5 inches from placental insertion site, placenta is heart shaped, pt and wish to take placenta home with them. Amniotic Fluid: Clear Estimated Blood Loss: 350 Delivery Outcome: Liveborn Infant Transferred: Remains with Mother Note: Labor became active after AROM, entered tub @ 1445, left tub @ 1632 to H&K position on floor mat where rectal pressure began increasing, SVE 8 cm, vtx -2 and had rotated from ROP to DINO, intermittent auscultation being done per protocol, pt sat in bathroom then went to H&K on bed and used nitrous. Pt reported urges to push, full dilation w/vtx +2 on exam, 2nd stage huddle completed, pt chose to turn to semifowlers and with little assistance brought knees to chest during effective pushes. Due increased risk of SD and PPH, Dr. Stark present in room for of a vigorous male , anterior shoulder was oblique and delivered easily, loose body cord noted around chest/belly which was unwrapped, baby to mother's arms immediately after initial bulb sx. Pitocin IV infusion begun, cord ceased pulsating, clamped and cut by FOB at 4 minutes of age, cord blood collected, Hunter placenta intact with 2 VC, confirmed, see cord description above. Family desires to take placenta home. 2nd degree perineal/vaginal laceration repaired under local anesthesia with 3.0 vicryl. Excellent family bonding noted. Apgars 8/9, weight 4395 gms. Providers Doctor: Nidhi Mendez Nurse Railroad Car Rep[employer] Supervisor: Barby Valdivia Nurse: Raul Karimi Nurse: Kristin Carrero Labor/Delivery Information Number of Babies in Womb: 1 Steroids Given: None Group Beta Strep: Negative Rubella Status: Immune Blood Type: A- Varicella Immunity: Immune Maternal Complications: None Shoulder Dystocia: No Stages of Labor Onset of Labor Date: 09/13/20 Complete Dilatation Date: 09/14/20 ROM Baby A: 09/14/20 ROM Baby A: 11:35 ROM Total Time- Baby A: [id number] Infant Delivery Date-Baby A: 09/14/20 Infant Delivery Time-Baby A: 17:46 Placenta Delivery Date-Baby A: 09/14/20 Placenta Delivery Time-Baby A: 17:53 Labor-Stage 3 Duration: 7 minutes Placenta Cultured: No Placenta Status: Delivered Baby A Gender: Male Gestational Status: Term (39-41.6 wks) Gestational Age in Weeks/Days: 40 Weeks and 3 Days weight: 9 lb 11.029 oz Weight Comment: 4395 gms Score-1 Minute Interval(Baby A) Heart Rate-1 minute: 100 BPM or Greater Respiratory Effort- 1 minute: Spontaneous/Strong Cry Muscle Tone-1 minute: Active Movement Reflex Response-1 minute: Prompt Response Color-1 minute: Pallor or Cyanosis Total Score-1 minute: 8 Score-5 Minute Interval(Baby A) Heart Rate- 5 minute: 100 BPM or Greater Respiratory Effort-5 minute: Spontaneous/Strong Cry Muscle Tone-5 minute: Active Movement Reflex Response-5 minute: Prompt Response Color-5 minute: Bluish Hands or Feet Total Score- 5 minute: 9 Procedure Procedures: Cord Blood Collection Interventions Repair of Laceration Type: Perineal , Laceration Extension: Second Degree . Sponge Count Correct: Yes , Sharp Count Correct: Yes . Laceration Repair Note: repaired under local anesthesia with 3.0 Vicryl
[2020-09-15 01:59] VITALS: BP 110/65; PULSE 75
[2020-09-15 05:45] VITALS: BP 109/57; PULSE 67; RESP 18; TEMP 36.5
[2020-09-15 05:49] VITALS: BP 109/57; PULSE 67
[2020-09-15 07:25] LABS: HCT 36.4 % (36.0-46.0); HGB 12.5 g/dL (11.2-15.7); MCH 30.9 pg (27.0-33.0); MCHC 34.3 % (32.0-36.0); MCV 90.1 fL (80-95); MPV 10.3 fL (8.0-11.0); Platelet Count 143 10^3/uL (130-400); RBC 4.04 10^6/uL (3.93-5.22); RDW 13.9 % (11.7-14.6); RDW-SD 45.3 fL; WBC 9.22 10^3/uL (4.4-10.8)
[2020-09-15] MEDS: Docusate Sodium 100 MG CAP PO ×2 (08:24→16:15)
[2020-09-15] MEDS: Ibuprofen 600 MG TAB PO ×2 (08:25→16:15)
[2020-09-15] MEDS: Acetaminophen 325 MG TAB 650 MG PO ×2 (08:25→16:14)
[2020-09-15 09:15] VITALS: BP 118/70; PULSE 68; RESP 16; TEMP 36.6; O2SAT 98
--- NOTE | 2020-09-15 10:40 | OBPPV_ITS ---
Date of service: 09/15/20 Time of Service: 10:40 Assessment and Plan Assessment and plan (1) Term delivered: Status: Acute Assessment and plan: A: PPD#1, nml recovery Satisfied with experience P: Pt desires discharge after 24 hrs, tray Aguilar has approved release of this evening w/f/up in office tomorrow RhoGam not indicated (baby is A neg) supports offered Plans to use condoms until has had vasectomy which is planned for this spring Written instructions reviewed and given to pt Pt declines medication for depression, feels well and confident, denies depression F/up with soda column operator in 2 & 6 wks Subjective Subjective Patient comments: No complaints, Pain well controlled and Flatus present baby status: Doing well, Nursing well, Rooming in and Strong Bonding Observed feeding status: Exclusively breast feeding Exam Physical Exam Vital signs: Temp Pulse Resp BP Pulse Ox 97.7 F 67 18 109/57 L 98 09/15/20 05:45 09/15/20 05:49 09/15/20 05:45 09/15/20 05:49 09/14/20 17:23 Vital Signs Reviewed: Yes Constitutional Constitutional: no acute distress and obese HEENT Exam HEENT Exam: Normal Neck Exam Neck Exam: Normal Breast Exam Bilateral: Breast Exam: Normal and Soft Nipple Exam: Normal and Uninjured Comments: Pt using nipples calzada to assist with inverted nipples Respiratory Exam Respiratory Exam: Normal Abdominal Exam Abdomen: Other (soft and nontender) Fundal Exam Fundus: Below Umbilicus and Firm Rectal Exam Rectal Exam: Hemmorhoids Exam Perineum: Normal and Repair Intact Extremities Exam Extremity Exam: Normal Back/Spine/Pelvis Exam Back Exam: Normal Skin Exam Skin Exam: Normal Neurological Exam Neurological Exam: Normal Psychiatric Exam Psychiatric Exam: Normal Results Hemoglobin/Hematocrit: Hgb 12.5 g/dL (11.2-15.7) 09/15/20 07:10 Hct 36.4 % (36.0-46.0) 09/15/20 07:10
--- NOTE | 2020-09-15 10:55 | DSE_ITS ---
Date of service: 09/15/20 Time of Service: 10:55 DS: Diagnosis Discharge Diagnosis (1) Term delivered: Status: Acute Discharge Plan Disposition Patient Disposition: HOME Condition: Good Discharge Details Reason For Visit: POST DATES,MACROSOMIA Admit Date/Time: 09/13/20 14:40 Admit Provider: Barby Valdivia Attending Provider: Barby Valdivia [facility] Course Hospital Course: Induction resulted in active labor, without complications, pt desires discharge on PPD#1 Home Meds and New Rx's Prescriptions: No Action fish oil 2 tab PO DAILY RF: 0 cholecalciferol (vitamin D3) 10 mcg (400 unit) capsule 10 mcg PO DAILY RF: 0 Adult Probiotic 3 billion cell capsule 3,000 mmu cells PO DAILY RF: 0 magnesium carb,citrate,oxide 300 mg magnesium tablet 300 mg PO RF: 0 PNV cmb#95-ferrous fumarate-FA [ Multivitamins] 28 mg iron- 800 mcg tablet 1 tab PO DAILY RF: 0 Discharge Instructions Additional Instructions: [facility] office to call you and schedule 2 & 6 week check up appt's with your material handler loader, telehealth is an option if you prefer. Call any time for concerns or questions. Stand Alone Forms: BC Instructions, NB Circumcision Care Inst., NB Instructions, BC Post Vaginal Deliver Activity:: Activity as Tolerated Equipment/Supplies:: No Equipment Needed Diet:: Normal Diet Discharge Orders Discharge Orders: Discharge Order (Routine); Ordered 09/15/20 Ordered By: Barby Valdivia OB:DS Summary Summary Vaginal Delivery Method: Spontaneaous Laceration Description: Perineal Laceration Extension: Second Degree Contraception Discussed Contraception Discussed: Yes Contraceptive Plan: Foam/Condoms and Vasectomy, [place] Gender-Baby A: Male weight: 9 lb 11.029 oz Status at Discharge Functional status at discharge: independent ambulation Overall status at discharge: patient is progressing back to baseline Mental Status: mental status grossly normal Speech and Movement: speech and movement normal and speech clear Mood: congruent mood Affect: normal affect Exam Physical Exam Vital signs: Temp Pulse Resp BP Pulse Ox 97.7 F 67 18 109/57 L 98 09/15/20 05:45 09/15/20 05:49 09/15/20 05:45 09/15/20 05:49 09/14/20 17:23 Constitutional Constitutional: no acute distress and obese HEENT Exam HEENT Exam: Normal Neck Exam Neck Exam: Normal Breast Exam Bilateral: Breast Exam: Normal and Soft Comments: Pt using nipples calzada to assist with inverted nipples Respiratory Exam Respiratory Exam: Normal Cardiovascular Exam Cardiovascular Exam: Normal Abdominal Exam Abdomen: Other (soft and nontender) Fundal Exam Fundus: Below Umbilicus and Firm Rectal Exam Rectal Exam: Hemmorhoids Exam Perineum: Normal and Repair Intact Extremities Exam Extremity Exam: Normal Back/Spine/Pelvis Exam Back Exam: Normal Skin Exam Skin Exam: Normal Neurological Exam Neurological Exam: Normal Psychiatric Exam Psychiatric Exam: Normal [facility] Medical History (Updated 09/15/20 @ 10:43 by Barby Valdivia) 16 weeks gestation of B[place] As infant, underwent screenings, transient. Resolved. Elderly multigravida in second trimester Excessive growth affecting management of mother in faye in third trimester, antepartum EFW at 32 weeks >99% Factor 5 Leiden mutation, heterozygous Missed 03/20/2019: Estimated gestational age 9 weeks. No pole Surgical History (Updated 03/22/19 @ 13:29 by Nidhi Mendez MD) History of D&C 03/22/2019. 9-week missed . [place] teeth extracted Family History Mother Age: 73 Breast cancer Father Age: 76 Factor 5 Leiden mutation, heterozygous Sister Age: 41 Factor 5 Leiden mutation, heterozygous Maternal Aunt Factor 5 Leiden mutation, heterozygous paternal Sister Age: 43 No problems noted. Social History (Updated 03/22/19 @ 13:25 by Nidhi Mendez MD) Smoking/Tobacco Use Status: Never Smoking risk assessment performed?: Yes Alcohol Intake: former Drug use: Never Substance use type: does not use Household members: spouse, children and other Details: Mateus Number of Children: 1 Education Level: college current occupation: Teacher seventh-grade Do you feel safe at home: Yes Do you feel safe in your relationship?: Yes History History 3 Para 1 Hx # Term Pregnancies 1 Multiple births 0 Hx # Pregnancies 0 Ectopic pregnancies 0 AB induced 0 Hx Number of Living Children 1 AB spontaneous 1 Past Pregnancies Del. Date GA/Weeks # Outcome Route Wgt Sex Labor Lgth Anesthes ia Location [facility] 06/15/17 41 No Successful vaginal 9 lb Female 8-9 hrs N [facility] with Dr. Mendez Delivery Date: 06/15/17 IOL for postdates, rodas bulb and pitocin, GBS antibiotics, used nitrous only for pain. Mild shoulder dystocia. Barby Valdivia DS: Data Vitals/I&O Vitals and I&O: Vital Signs Temperature 97.7 F 09/15/20 05:45 Pulse 67 09/15/20 05:49 Pulse Rhythm Regular 09/14/20 07:57 Respiratory Rate 18 09/15/20 05:45 Blood Pressure 109/57 L 09/15/20 05:49 Blood Pressure Mean 74 09/15/20 05:45 Pulse Oximetry 98 09/14/20 17:23 Oxygen Delivery Method Room Air 09/13/20 17:13 Oxygen Flow Rate 0 09/13/20 17:13 Pain Level 2 09/15/20 08:25 Comment 09/14/20 16:02 Intake & Output 09/14/20 09/14/20 09/15/20 11:59 23:59 11:59 Intake Total 610 / 2410 1800 / 2410 550 / 550 Output Total 2375 / 4075 1500 / 4075 1200 / 1200 Balance -1765 / -1665 300 / -1665 -650 / -650 Intake: IV 10 Oral 600 / 2400 1800 / 2400 550 / 550 Output: Urine 2375 / 4075 1500 / 4075 1200 / 1200 Other: Urine Color Yellow [place] Urine Appearance Clear Clear Urine Odor None None Voiding Methods Toilet Toilet Data Completed and Pending Labs on day of discharge: Labs from last 24 hours 09/15/20 07:10 WBC 9.22 RBC 4.04 Hgb 12.5 Hct 36.4 MCV 90.1 MCH 30.9 MCHC 34.3 RDW 13.9 Plt Count 143 MPV 10.3
[2020-09-15 13:05] VITALS: BP 111/70; PULSE 87; RESP 16; TEMP 36.7; O2SAT 96
[2020-09-15 15:40] VITALS: BP 116/57; PULSE 77; RESP 16; TEMP 36.7; O2SAT 97
== END 2020-09-15 18:50 | disposition home or self-care (01) | DRG 806 ==
LOC: NUR 16:08 → OBS 16:09
PROVIDERS: Admitting Provider Advanced Practice Midwife; PCP Nurse Practitioner Family; Visit Provider Advanced Practice Midwife
DX: O48.0 Post-term pregnancy (principal); O36.0930 Maternal care for other rhesus isoimmunization, third trimester, not applicable or unspecified; Z37.0 Single live birth; O99.12 Other diseases of the blood and blood-forming organs and certain disorders involving the immune mechanism complicating childbirth; D68.51 Activated protein C resistance; O69.81X0 Labor and delivery complicated by cord around neck, without compression, not applicable or unspecified; O99.344 Other mental disorders complicating childbirth; F32.9 Major depressive disorder, single episode, unspecified; Z3A.40 40 weeks gestation of pregnancy; O69.89X0 Labor and delivery complicated by other cord complications, not applicable or unspecified; O70.1 Second degree perineal laceration during delivery
CPT/HCPCS: 36415; 85027; 86850; 86900; 86901; 87635; J2590

== ENCOUNTER 2022-06-14 09:39 | Emergency (ER) | payer BC, SELFPAY ==
--- NOTE | 2022-06-14 10:00 | DI.RAD_ITS ---
Exam(s) XR ANKLE RT COMPLETE EXAM: XR ANKLE RT COMPLETE CLINICAL HISTORY: fall lateral ankle injury. TECHNIQUE: 2D digital imaging was performed. Three views. COMPARISON: No exams were available for comparison FINDINGS: BONES: Oblique fracture extending through the lateral malleolus to the level of the ankle mortise. S mall slight displacement. No talar dome defect. No bony destructive lesion is seen. JOINTS: The ankle mortise is normally aligned. SOFT TISSUE: Marked lateral swelling IMPRESSION: Lateral malleolar fracture. DATA REPOSITORY: RADIATION DOSE DELIVERED:
[2022-06-14 10:01] VITALS: BP 142/78; PULSE 81; RESP 18; TEMP 37.1; O2SAT 97
--- NOTE | 2022-06-14 10:07 | ED.GENADUL_ITS ---
Discharge Plan Disposition Patient Disposition: Home Condition: Stable Discharge Details Clinical Impression: Fracture of distal end of right fibula Primary Care Provider: Halima Long ED Provider: Patricio Case Home Meds and New Rx's Prescriptions: Continued fish oil 2 tab PO DAILY cholecalciferol (vitamin D3) 10 mcg (400 unit) capsule 10 mcg PO DAILY magnesium carb,citrate,oxide 300 mg magnesium tablet 300 mg PO PNV cmb#95-ferrous fumarate-FA [ Multivitamins] 28 mg iron- 800 mcg tablet 1 tab PO DAILY fluconazole [Diflucan] 150 mg tablet 150 mg PO ONCE Qty: 1 0RF Rx Instructions: as a single dose sertraline 50 mg tablet See Rx Instructions .ROUTE .COMPLEX Qty: 90 3RF Dose Instruction: TAKE 1 TABLET BY MOUTH DAILY Rx Instructions: TAKE 1 TABLET BY MOUTH DAILY Discharge Instructions Instructions: Ankle Fracture (ED) Additional Instructions: You may continue to take ygwa-fbg-[id number] pain medication as needed for discomfort. Please keep the extremity elevated as this will help with swelling and use crutches for any ambulation. Please follow-up with the orthopedist for further reassessment and further care of your fracture. If you develop any new or worsening symptoms please return to the emergency department for reassessment. Referrals: [facility] [Provider Group] (Please call the office tomorrow afternoon for arrangement of follow-up appointment) Discharge Data Discharge Date/Time-TO BE ENTERED AT DEPARTURE: 06/14/22 11:28 Medical Decision Making Patient presenting to the emergency department for chief complaint of fall with right ankle injury. She states her ankle was to behind her during the fall. Patient denies any other injury or trauma or complaints at this time. Physical exam shows lateral ankle tenderness and swelling with lateral ankle being painful during range of motion movements. Exam is otherwise unremarkable. We will perform radiological imaging for assessment of potential fracture versus sprain. Patient took pain medication prior to arrival. Review of radiological imaging shows very subtle distal fibular fracture. There is a significant delay in radiology interpretation due to significant volume but I do feel confident treating patient and discharging pending these results. Patient was placed on the Ortho follow-up list and placed in a walking boot and crutches. Patient states that mept-wku-[id number] pain medication will be appropriate for pain control. After discussion of diagnosis and plan of care patient has no further needs, questions, or concerns and states clear understanding to return to the emergency department for any worsening symptoms. This documentation was generated using Estately dictation system, please disregard any oddities of phrase or misspellings. HPI General Mode of arrival: ambulatory . Date/Time Provider Initiated Documentation: 06/14/22 10:03 . Limitations to Documentation: no limitations . Information obtained by: patient and RN notes reviewed . History of Present Illness 41 year old F presents to the emergency department with the chief complaint of fall with right ankle injury, described as moderate, with intensity rated at 3. Quality is described as aching and sharp, and is localized to the right and lower extremity. Patient reports no radiation. Patient started experiencing this hour(s) (14) and it has been constant. Immobilization improves symptom(s), Movement worsens symptoms . Patient notes no other symptoms.. Patient did receive the following treatments prior to arrival, NSAID Related Data Home Medications Medication Instructions Recorded Confirmed vit no.95-ferrous 1 tab PO DAILY 01/31/20 06/14/22 fumarate 28 mg-folic acid 800 mcg tablet ( Multivitamins) cholecalciferol (vitamin D3) 10 10 mcg PO DAILY 07/05/20 06/14/22 mcg (400 unit) capsule fish oil 2 tab PO DAILY 07/05/20 06/14/22 magnesium carb,citrate,oxide 300 mg PO 08/23/20 03/03/21 fluconazole 150 mg tablet 150 mg PO ONCE #1 tab 03/29/21 06/14/22 (Diflucan) sertraline 50 mg tablet See Rx Instructions .Route 03/27/22 06/14/22 .COMPLEX #90 tabs Previous Rx's Medication Instructions Recorded fluconazole 150 mg tablet 150 mg PO ONCE #1 tab 03/29/21 (Diflucan) sertraline 50 mg tablet See Rx Instructions .Route 03/27/22 .COMPLEX #90 tabs Allergies Allergy/AdvReac Type Severity Reaction Status Date / Time codeine AdvReac sobbing Unverified 06/14/22 10:03 depression General Stated Complaint: Orthopedic NEELAM: 4 Review of Systems Narrative: 6 systems reviewed and unremarkable except what is marked below. Musculoskeletal Musculoskeletal: Reports as per HPI, Reports arthralgias, Reports joint swelling, Reports limited range of motion, Denies numbness and Denies tingling Integumentary/Breasts Skin/Breast: Denies wounds Neurologic Neurologic: Denies numbness and Denies tingling PFSH All Active Problems (Updated 06/14/22 @ 11:08 by Patricio Case NP) Fracture of distal end of right fibula (Acute) Depression (Chronic) Mother currently breast-feeding (Acute) Mastitis during puerperium (Acute) Factor 5 Leiden mutation, heterozygous (Acute 10/08/16) Medical History 16 weeks gestation of [place] , underwent screenings, transient. Resolved. Elderly multigravida in second trimester Encounter for induction of labor Excessive growth affecting management of mother in faye in third trimester, antepartum EFW at 32 weeks >99% Factor 5 Leiden mutation, heterozygous macrosomia Missed 03/20/2019: Estimated gestational age 9 weeks. No pole Post-term , 40-42 weeks of gestation care and examination Rh negative state in antepartum period Term delivered Two vessel umbilical cord in faye , antepartum Surgical History History of D&C 03/22/2019. 9-week missed . [place] teeth extracted Family History Mother Age: 75 Breast cancer Father Age: 77 Factor 5 Leiden mutation, heterozygous Sister Age: 42 Factor 5 Leiden mutation, heterozygous Maternal Aunt Factor 5 Leiden mutation, heterozygous paternal Sister Age: 45 No problems noted. Social History Smoking/Tobacco Use Status: Never Smoking risk assessment performed?: Yes Alcohol Intake: former Drug use: Never Substance use type: does not use Household members: spouse, children and other Details: Mateus Number of Children: 1 Education Level: college current occupation: Teacher seventh-grade Do you feel safe at home: Yes Do you feel safe in your relationship?: Yes History History 3 Para 2 Hx # Term Pregnancies 2 Multiple births 0 Hx # Pregnancies 0 Ectopic pregnancies 0 AB induced 0 Hx Number of Living Children 2 AB spontaneous 1 Past Pregnancies Del. Date GA/Weeks # Preg Succ Route Wgt Sex Labor Lgth Anesth esia Location Prov Complic 06/15/17 41 No vaginal 4082.331 g Female 8-9 hrs N [facility] - [place] with Dr. Mendez 09/14/20 40 No vaginal 4395 g Male [facility] Delivery Date: 06/15/17 Last Updated by: Barby Valdivia IOL for postdates, rodas bulb and pitocin, GBS antibiotics, used nitrous only for pain. Mild shoulder dystocia. Exam Const General: cooperative, no acute distress and not ill appearing Orientation: alert, awake and oriented x3 Resp Effort & Inspection: normal respiratory effort, able to speak in complete sentences and no respiratory distress Cardio Rate: regular rate Rhythm: regular rhythm Pulses: normal peripheral pulses Skin General skin exam: no rashes or lesions noted Trauma: no lacerations or abrasions Neuro General: patient alert, patient awake, patient oriented x3, moves all extremities and no focal motor deficits Sensory Exam: no sensory deficits noted Extrem General: normal exam except as noted Right lower extremity: ankle Details: tenderness Location: of the lateral malleolus, swelling Details: laterally and abnormal ROM Details: pain with active ROM Details: with inversion; no abrasions, no lacerations and no ecchymosis and foot Details: normal capillary refill, toes with normal ROM, vascular exam Details: dorsalis pedis pulse present, posterior tibial pulse present and normal capillary refill and motor-sensory exam Details: two point discrimination normal and light-touch normal; no tenderness and no ecchymosis Course Vital Signs Vital signs: Vital Signs Temperature 37.1 C 06/14/22 10:01 Pulse 81 06/14/22 10:01 Respiratory Rate 18 06/14/22 10:01 Blood Pressure 142/78 H 06/14/22 10:01 Pulse Oximetry 97 06/14/22 10:01 Temperature 37.1 C 06/14/22 10:01 Temperature Source Temporal Artery Scan 06/14/22 10:01 Pulse 81 06/14/22 10:01 Respiratory Rate 18 06/14/22 10:01 Respiratory Effort Non-Labored 06/14/22 10:04 Blood Pressure 142/78 H 06/14/22 10:01 Blood Pressure Position Sitting 06/14/22 10:01 Pulse Oximetry 97 06/14/22 10:01 Oxygen Delivery Method Room Air 06/14/22 10:01 Oxygen Flow Rate 0 06/14/22 10:01 Pain Level 3 06/14/22 10:01
--- NOTE | 2022-06-14 11:17 | DI.VRAD_ITS ---
PROCEDURE INFORMATION: Exam: XR Right Ankle Exam date and time: 06/14/2022 10:18 AM Age: 41 years old Clinical indication: Other: Fall, lateral ankle injury TECHNIQUE: Imaging protocol: Radiologic exam of the Right ankle. Views: 3 or more views. COMPARISON: No relevant prior studies available. FINDINGS: Bones/joints: Obliquely oriented fracture of the lateral malleolus. Soft tissues: Lateral soft tissue edema. IMPRESSION: 1. Obliquely oriented fracture of the lateral malleolus. 2. Lateral soft tissue edema. Dictated and Authenticated by: Mikel Baptiste MD. Ordering:GUME Curry MD
== END 2022-06-14 11:28 | disposition home or self-care (01) ==
PROVIDERS: Emergency Provider Nurse Practitioner Family; PCP Nurse Practitioner Family
DX: S82.831A Other fracture of upper and lower end of right fibula, initial encounter for closed fracture (principal); W19.XXXA Unspecified fall, initial encounter; Y99.8 Other external cause status
CPT/HCPCS: 99283; 73610

== ENCOUNTER 2022-06-30 10:17 | Outpatient (CLI) | payer BC, SELFPAY ==
--- NOTE | 2022-06-30 09:15 | DI.RAD_ITS ---
Exam(s) XR ANKLE RT COMPLETE EXAM: XR ANKLE RT COMPLETE CLINICAL HISTORY: right ankle f/u. TECHNIQUE: 2D digital imaging was performed. COMPARISON: CR,XR XR ANKLE RT COMPLETE from 06/14/2022 FINDINGS: 3 views Again noted is the previously described fracture of the distal fibula with overlying soft tissue swel ling. There is no further displacement and there is no widening of the ankle mortise. No additional fractures evident. Talar dome unremarkable. Bone density normal. No osseous lesions. No incident al coalition evident. IMPRESSION: Stable appearance of the distal fibular fracture. No displacement and no widening of the ankle morti se. There is persistent overlying soft tissue swelling. DATA REPOSITORY: RADIATION DOSE DELIVERED:
== END 2022-06-30 10:18 | disposition home or self-care (01) ==
LOC: DIORS 10:17
PROVIDERS: PCP Nurse Practitioner Family; Referring Provider Nurse Practitioner Family; Visit Provider Student in an Organized Health Care Education/Training Program
DX: S82.831D Other fracture of upper and lower end of right fibula, subsequent encounter for closed fracture with routine healing (principal); X58.XXXD Exposure to other specified factors, subsequent encounter
CPT/HCPCS: 73610

== ENCOUNTER 2022-07-28 08:24 | Outpatient (CLI) | payer BC, SELFPAY ==
--- NOTE | 2022-07-28 08:00 | DI.RAD_ITS ---
Exam(s) XR ANKLE RT COMPLETE EXAM: XR ANKLE RT COMPLETE CLINICAL HISTORY: right ankle f/u. TECHNIQUE: 2D digital imaging was performed. COMPARISON: CR XR ANKLE RT COMPLETE from 06/30/2022 FINDINGS: 3 views Again noted is a previously described oblique fracture in the distal fibula, nondisplaced. No wideni ng of the ankle mortise. Talar dome unremarkable. There is some calcification parallel to the lateral cortical surface of the fibula at this level whic h is either some callus formation or calcifying hematoma adjacent to the bone. There is still signif icant soft tissue swelling laterally. On the lateral view there is a small calcific density noted posterior to the posterior malleolus, not evident on the prior study. There is possibly that this may represent a small avulsion off posterio r malleolus. IMPRESSION: Healing fibular fracture site no further displacement. Small osteophytic density seen posterior to the posterior malleolus. This may represent a small avul venu injury at this level. DATA REPOSITORY: RADIATION DOSE DELIVERED:
== END 2022-07-28 08:25 | disposition home or self-care (01) ==
LOC: DIORS 08:24
PROVIDERS: PCP Nurse Practitioner Family; Referring Provider Nurse Practitioner Family; Visit Provider Student in an Organized Health Care Education/Training Program
DX: S82.831D Other fracture of upper and lower end of right fibula, subsequent encounter for closed fracture with routine healing (principal); X58.XXXD Exposure to other specified factors, subsequent encounter
CPT/HCPCS: 73610

== ENCOUNTER 2022-07-29 00:37 | Outpatient (CLI) | payer BC, SELFPAY ==
--- NOTE | 2022-07-29 | DI.MAMMO_ITS ---
Exam(s) MAMMO SCREENING EXAM: MAMMO SCREENING CLINICAL HISTORY: SCREENING, Z12.31, FAMILY HX BREAST CA, Z80.3 TECHNIQUE: Mammograms were interpreted according to the usual protocol including computer analysis w [employer] CAD system, tomosynthesis and C-view imaging. COMPARISON: None. Baseline exam. FINDINGS: The patient notes that she is still nursing. The breasts are composed of heterogeneously dense fibroglandular densities, Breast Density category C . No suspicious masses or suspicious microcalcifications are seen. No skin thickening or abnormal axillary lymph nodes are seen. IMPRESSION: BI-RADS Category 1, Negative mammogram. Yearly screening mammography is recommended. Breast Density Category C, heterogeneously Dense. The mammogram demonstrates the patient's breast tissue is dense. Dense breast tissue is very common a nd is not abnormal but dense breast tissue can make it harder to find cancer on a mammogram. Also, de nse breast tissue may increase breast cancer risk. This information about the result of the mammogram report was provided to the patient to raise their awareness. Use this report when you speak with the patient about their risks for breast cancer, which includes their family history. At that time, you may recommend additional screening tests (Ultrasound or MRI) as they might be useful based on their r isk. A negative radiographic report should not delay biopsy if a dominant or clinically suspicious mass is present. Up to ten percent of cancers are not identified on mammography. A negative report may reinforce clinical impression. Adenosis and dense breasts may obscure an underlying neoplasm. False positive reports average 6 to 10%.
== END 2022-07-29 00:57 ==
LOC: DI 00:37
PROVIDERS: PCP Nurse Practitioner Family; Visit Provider Nurse Practitioner Family
DX: Z12.31 Encounter for screening mammogram for malignant neoplasm of breast (principal); R92.8 Other abnormal and inconclusive findings on diagnostic imaging of breast; Z80.3 Family history of malignant neoplasm of breast
CPT/HCPCS: 77063; 77067

== ENCOUNTER 2022-09-21 13:06 | Outpatient (REF) | payer BC, SELFPAY ==
--- NOTE | 2022-09-21 10:30 | SKI_PTH ---
PATIENT: Harper Goddard LOC: [facility] U#:[id number] AGE/SX: 41/F ROOM: RE09/21/[address]: Ron June MD : 1980 BED: DIS: 09/21/2022 SPEC #: [id number] RECD: 09/21/22 14:46 STATUS: PREET REQ #: [id number] BELINDA: 09/21/22 10:[address]: Ron June DEPT: Surgical Specimen RECD BY: Michelle Esposito ENTERED: 09/21/22 14:46 SP TYPE: KATINA PEACE DR: Halima Long Tissues: 1 - SKIN BIOPSY(SHAVE/PUNCH) Procedures: SKIN LEVEL 4 Comments: [id number]
== END 2022-09-21 13:07 | disposition home or self-care (01) ==
LOC: LBN 13:06
PROVIDERS: PCP Nurse Practitioner Family; Visit Provider Otolaryngology
DX: D36.9 Benign neoplasm, unspecified site (principal)
CPT/HCPCS: 88305

== ENCOUNTER 2024-06-16 16:24 | Outpatient (REF) | payer BC, SELFPAY ==
--- NOTE | 2024-06-16 08:15 | PAPFT_PTH ---
PATIENT: Harper Goddard LOC: [facility] U#:[id number] AGE/SX: 43/F ROOM: RE06/16/[address]: Zo Montes : 1980 BED: DIS: 06/16/2024 SPEC #: [id number] RECD: 06/16/24 17:24 STATUS: PREET REKishore #: [id number] BELINDA: 06/16/24 08:[address]: Zo Montes DEPT: [facility] Cytology RECD BY: Michelle Esposito ENTERED: 06/16/24 17:24 SP TYPE: PAPFT OTHR DR: Halima Long Tissues: 1 - CX/ENDOCX FOR PAP SMEARS Procedures: PAP THIN PREP/[facility] Screening HPV DNA PROBE Comments: [id number] (HPV 16 & 18/45)
[2024-06-16 16:31] LABS: HCT 41.6 % (36.0-46.0); HGB 13.9 g/dL (11.2-15.7); MCH 29.4 pg (27.0-33.0); MCHC 33.4 % (32.0-36.0); MCV 88 fL (80-95); MPV 10.5 fL (8.0-11.0); Platelet Count 161 10^3/uL (130-400); RBC 4.72 10^6/uL (3.93-5.22); RDW 12.8 % (11.7-14.6); RDW-SD 41.6 fL; WBC 3.88 10^3/uL (4.4-10.8)
[2024-06-16 17:36] LABS: ALT 42 U/L (14-59); AST 27 U/L (15-37); Albumin 4.1 g/dL (3.4-5.0); Alkaline Phosphatase 57 U/L (46-116); Anion Gap 9.1 mmol/L (3-11); BUN 12 mg/dL (7-18); CO2 27.9 mmol/L (21.0-32.0); Calcium 9.2 mg/dL (8.5-10.1); Calculated LDL 67 mg/dL (<100); Chloride 106 mmol/L (98-107); Cholesterol 150 mg/dL (<200); Estimated GFR 72.13 (mL/min/1.73m2); Glucose 100 mg/dL (74-106); HDL Cholesterol 56 mg/dL (40-60); Potassium 4.2 mmol/L (3.5-5.1); Sodium 143 mmol/L (136-145); Total Protein 7.6 g/dL (6.4-8.2); Triglyceride 135 mg/dL (<150)
== END 2024-06-16 16:25 | disposition home or self-care (01) ==
LOC: NCHCN 16:24
PROVIDERS: PCP Nurse Practitioner Family; Visit Provider Nurse Practitioner Family
DX: Z11.51 Encounter for screening for human papillomavirus (HPV) (principal); Z01.419 Encounter for gynecological examination (general) (routine) without abnormal findings; Z00.00 Encounter for general adult medical examination without abnormal findings
CPT/HCPCS: 80053; 80061; 85027; 88142; 87624

== ENCOUNTER 2024-08-30 01:49 | Outpatient (CLI) | payer BC, SELFPAY ==
--- NOTE | 2024-08-30 | DI.MAMMO_ITS ---
Exam(s) MAMMO SCREENING EXAM: MAMMO SCREENING CLINICAL HISTORY: screening, Z12.31 TECHNIQUE: Mammograms were interpreted according to the usual protocol including computer analysis w [employer] CAD system, tomosynthesis and C-view imaging. COMPARISON: 2022 FINDINGS: The breasts are composed of heterogeneously dense fibroglandular densities, Breast Density category C . No suspicious masses or suspicious microcalcifications are seen. No skin thickening or abnormal axillary lymph nodes are seen. There has been no significant change from prior exams. IMPRESSION: BI-RADS Category 1, Negative mammogram. Yearly screening mammography is recommended. Breast Density Category C, heterogeneously Dense. The mammogram demonstrates the patient's breast tissue is dense. Dense breast tissue is very common a nd is not abnormal but dense breast tissue can make it harder to find cancer on a mammogram. Also, de nse breast tissue may increase breast cancer risk. This information about the result of the mammogram report was provided to the patient to raise their awareness. Use this report when you speak with the patient about their risks for breast cancer, which includes their family history. At that time, you may recommend additional screening tests (Ultrasound or MRI) as they might be useful based on their r isk. A negative radiographic report should not delay biopsy if a dominant or clinically suspicious mass is present. Up to ten percent of cancers are not identified on mammography. A negative report may reinforce clinical impression. Adenosis and dense breasts may obscure an underlying neoplasm. False positive reports average 6 to 10%.
== END 2024-08-30 02:09 ==
LOC: DI 01:49
PROVIDERS: PCP Nurse Practitioner Family; Visit Provider Nurse Practitioner Family
DX: Z12.31 Encounter for screening mammogram for malignant neoplasm of breast (principal); R92.333 Mammographic heterogeneous density, bilateral breasts
CPT/HCPCS: 77063; 77067